=== PATIENT | male | born 1950 | race Asian ===

== ENCOUNTER 2017-09-05 13:26 | Emergency (ER) | payer OTHER ==
[~2017-09-05] VITALS: Ht 167.6 cm; Wt 69.9 kg
[2017-09-05] MEDS ORDERED: Ketorolac 30mg Inj IV ONE (13:30)
[2017-09-05] MEDS ORDERED: Morphine Sulfate 4mg/ml Inj IVP ONE ×2 (13:30→14:45)
[2017-09-05 13:47] VITALS: BP 139/76
[2017-09-05 15:06] VITALS: BP 132/81
--- NOTE | 2017-09-05 15:15 | Diagnostic Imaging Report ---
Indication: Trauma Technique: XRAY Forearm 2v R Comparison: Correlation made to concurrent wrist radiographs. Findings: Overlying splint obscures fine bony and soft tissue detail. Comminuted, impacted and displaced fracture of the distal radius. No additional forearm fracture identified. Elbow joint grossly preserved. No radiopaque foreign body identified. Impression: Comminuted, impacted and displaced fracture of the distal radius. No additional forearm fractures identified.
--- NOTE | 2017-09-05 15:17 | Diagnostic Imaging Report ---
Indication: Trauma Technique: XRAY Wrist Complete R Comparison: None Findings: There is a comminuted, impacted and displaced fracture of the distal radius. Fracture lines extend to the articular surface. No additional fracture identified. There is overlying soft tissue swelling. No radiopaque foreign body seen. Impression: Comminuted, impacted, mildly displaced and angulated intra-articular fracture of the distal radius.
--- NOTE | 2017-09-05 15:34 | Emergency Room Report ---
History of Present Illness General Chief Complaint: Multiple Trauma/Fall Source: Patient Present Illness HPI Patient 's crutch slipped out and he fell on his R hand. There is deformity there, pain and swelling. No LOC. Pain rated at 10/10 - sharp and aching, not radiate, constant. Splinted by EMS and transported. H/O polio. Difficulty with ambulation due to rigidity and atrophy of legs (R>L) . No fevers. No scrapes on skin. No numbness of fingers. Denies other areas injured during the fall. R handed Allergies: Coded Allergies: No Known Allergies (Unverified , 09/05/17) Patient History Past Medical History: see triage record, other - polio Social History: Denies: smoking, alcohol use, drug use Social History Narrative with daughter - animation Reviewed Nursing Documentation: PMH: Agreed; PSxH: Agreed Nursing Documentation-PM Past Medical History: No History, Except For Hx Cardiac Problems: Yes Review of Systems Constitutional: Reports: see HPI Respiratory: Denies: shortness of breath Cardiovascular: Denies: chest pain Gastrointestinal: Denies: abdominal pain Musculoskeletal: Reports: see HPI Skin: Reports: see HPI Neurological: Reports: see HPI Hematologic/Lymphatic: Denies: easy bleeding Physical Exam Vital Signs Date Time Temp Pulse Resp B/P (MAP) Pulse Ox O2 Delivery O2 Flow Rate FiO2 09/05/17 13:22 98.1 71 18 139/76 99 Room Air 98.1 Sp02 EP Interpretation: reviewed, normal General Appearance: well appearing, no apparent distress, GCS 15 Head: normocephalic, atraumatic Eyes: bilateral eye normal inspection, bilateral eye PERRL ENT: hearing grossly normal, normal voice, moist mucus membranes Neck: full range of motion, supple, no bony tend Respiratory: chest non-tender, lungs clear, no respiratory distress, speaking full sentences Cardiovascular #1: regular rate, rhythm Cardiovascular #2: 2+ radial (R) Gastrointestinal: normal inspection Musculoskeletal: other - atrophy and R leg short with some rigidity. No tenderness. R wrist with posterior deformity, swelling, hand, elbow and shoulder without tenderness Neurologic: alert, sensory intact, motor weakness - LE bilst - R hand with weakness due to pain in wrist, digits normal ROM Psychiatric: mood/affect normal Skin: no rash Medical Decision Making Diagnostic Impression: Primary Impression: Fall Qualified Codes: W19.XXXA - Unspecified fall, initial encounter Additional Impressions: Right wrist fracture Qualified Codes: S62.101A - Fracture of unspecified carpal bone, right wrist, initial encounter for closed fracture Post-polio limb muscle weakness ER Course Patient post fall with obvious swell and deform R wrist. DDx: fx, dislocation, contusion amongst others. xrays indicated. Analgesia and ice indicated. Analgesia repeated. Xray with fx. Consulted Dr. Coats who recommends operation next week. Splint and sling applied by tech and myself. Position excellent and neurovasc normal as checked by me. Issue of how he will manage at home with polio. Family request wheelchair (Rx given). Advised if not doing well to return. Percocet given prior to discharge. Patient stable for outpatient treatment and observation. Other X-Ray Diagnostic Results Other X-Ray Diagnostic Results #1: X-Ray ordered: R wrist # of Views/Limited Vs Complete: 3 View Indication: Other EP Interpretation: Yes Interpretation: other - fxs with posterior angulation of radius, comminuted , STS, no ulnar rx seen Impression: Other Electronically Signed by: Angel Luis Goldsmith MD Other X-Ray Diagnostic Results #2: X-Ray ordered: R forearm # of Views/Limited Vs Complete: 2 View Indication: Other EP Interpretation: Yes Interpretation: other - see above, no other abnormalities on radiaus or ulna (fx, STS, post angulation) Impression: Other Electronically Signed by: Angel Luis Goldsmith MD Last Vital Signs Date Time Temp Pulse Resp B/P (MAP) Pulse Ox O2 Delivery O2 Flow Rate FiO2 09/05/17 15:52 98.1 85 17 132/81 99 Room Air 208.6 Status: improved Disposition: HOME, SELF-CARE Condition: Improved Scripts Ibuprofen* (MOTRIN*) 600 Mg Tablet 600 MG ORAL Q6H PRN for For Pain, #20 TAB Prov: Angel Luis Goldsmith M.D. 09/05/17 Tramadol Hcl* (ULTRAM*) 50 Mg Tablet 50 MG ORAL Q6H PRN for For Pain, #16 TAB 0 Refills Prov: Angel Luis Goldsmith M.D. 09/05/17 Wheelchair (WHEELCHAIR) 1 Each Each EACH for polio and wrist fx, #1 Prov: Angel Luis Goldsmith M.D. 09/05/17 Referrals: [facility] (PCP) Angel Luis Goldsmith M.D. Sep 05, 2017 15:34
[2017-09-05] MEDS ORDERED: TRAMADOL HCL50 MG ORAL (15:37)
[2017-09-05] MEDS ORDERED: WHEELCHAIR1 EACH MC (15:37)
[2017-09-05] MEDS ORDERED: IBUPROFEN600 MG ORAL (15:37)
[2017-09-05] MEDS ORDERED: oxyCODONE HCL/Acetaminophen 5/325mg ORAL ONE (15:45)
== END 2017-09-05 15:50 | disposition home or self-care (01) ==
LOC: EDBD 13:26 → EMR 13:55 → MERGE 13:55 → EMR 15:50
DX: S62.101A Fracture of unspecified carpal bone, right wrist, initial encounter for closed fracture (principal); G14 Postpolio syndrome; W18.30XA Fall on same level, unspecified, initial encounter; Y92.9 Unspecified place or not applicable
CPT/HCPCS: 73090; 73110; 99284; J1885; J2270; J2405